=== PATIENT | male | born 1980 | race Caucasian/White ===

== ENCOUNTER 2019-12-03 23:56 | Emergency (ER) | payer OTHER, SELFPAY ==
[2019-12-04 00:09] VITALS: BP 117/76; PULSE 57; RESP 16; TEMP 36.7; O2SAT 100; BMI 20.5
[2019-12-04] MEDS: predniSONE 20 MG TABLET 60 MG PO (00:39)
--- NOTE | 2019-12-04 00:40 | ED_ITS ---
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 Initially he thought his face was red perhaps sunburned or wind burned. His lips were dry a bit more full and then began to itch a particularly the left angle of the lips. He thought he may be developing a cold sore and started his valacyclovir. Over the last 12-18 hours he notes increasing swelling around the eyes, fullness to the lips with increasing dryness to the lips because of the fullness. He specifically notes no tongue or posterior pharyngeal swelling or irritation. No wheezing and no rash anywhere else on his body. Related Data Previous Rx's Medication Instructions Recorded methylprednisolone [Medrol (Noah)] See Rx Instructions .ROUTE 12/04/19 .COMPLEX #21 each Allergies Allergy/AdvReac Type Severity Reaction Status Date / Time cephalexin [From Keflex] Allergy Verified 12/04/19 00:09 Review of Systems Review of Systems Narrative: Pertinent positive and negative findings as per HPI Remainder of review of systems is otherwise unremarkable for Constitutional: Fevers, chills, weakness ENT: No sore throat, neck pain, ear pain CV: Chest pain, palpitations, dyspnea on exertion Respiratory: Cough, wheeze, dyspnea GI: Nausea, vomiting, diarrhea, change in bowel habits, black or bloody stools : Dysuria, hematuria, flank pain MS: Muscle weakness, numbness, joint swelling or warmth Neuro: Syncope, dizziness, tingling Allergy: Seasonal rhinorrhea, itchy eyes Patient History Medical History Diabetes (Acute) Necrotizing pancreatitis (Acute) Surgical History History of cholecystectomy (Acute) Social History Smoking Status: Never smoker Smoking Status: Never smoker alcohol intake frequency: 0-2 drinks per day Substance Use Type: does not use Exam Narrative Exam Narrative: General: Facial erythema and edema but Able to give a complete and coherent history. Well-nourished well-developed HEENT: Moist mucous membranes, rash over the mid face extending up the nasal br idge including eyelids and down to the chin. Moderately defined border around the facial rash. Erythematous and blanching. Very dry lips edema associated with the rash. Oropharynx is entirely unremarkable, he has no cervical adenopathy. Neck: No JVD, supple Respiratory: Lungs are clear to auscultation, no wheezing no rales no rhonchi. Full and symmetrical air movement Cardiac: Regular rate and rhythm no murmurs no bruits Abdomen: Soft nontender good bowel tones, no flank pain Skin: Warm and dry, no rashes beyond that on his face Neurologic: Grossly neurologically intact with no obvious asymmetries or abnormalities Extremities: No trauma, well perfused Psych: Cooperative, appropriate insight and affect Initial Vital Signs Initial Vital Signs: Vital Signs Temperature 98.0 F 12/04/19 00:09 Pulse Rate 57 L 12/04/19 00:09 Respiratory Rate 16 12/04/19 00:09 Blood Pressure 117/76 12/04/19 00:09 Pulse Oximetry 100 12/04/19 00:09 Course Orders Ordered: Discontinued Medications Loratadine (Claritin) 10 mg PO NOW ONE Stop: 12/04/19 00:37 Last Admin: 12/04/19 00:45 Dose: 10 mg Documented by: Prednisone (Deltasone) 60 mg PO NOW ONE Stop: 12/04/19 00:37 Last Admin: 12/04/19 00:39 Dose: 60 mg Documented by: Vital Signs Vital signs: Vital Signs - 8 hr 12/04/19 00:09 12/04/19 00:51 Temperature 98.0 F Pulse Rate 57 L 50 L Respiratory Rate 16 15 Blood Pressure 117/76 117/76 Pulse Oximetry 100 100 MDM - Allergic Reaction MDM Narrative Medical decision making narrative: 39-year-old gentleman with a rash developing over his face worsening in the last 3 days certainly looks allergic with the color as well as the hive-like appearance. The significantly localized area is interesting. Explanation is an acute allergic reaction and I treated it is such initially. He is given a dose of prednisone with Medrol Dosepak and instructions to continue Ami for 7 additional days. I did share with him that the diagnosis is incorrect if his symptoms are not improving. Dispose severe seborrheic dermatitis could certainly be within the differential however it does not extend down his neck or to his chest. It has more swelling/hives like presentation and includes more of the face than I would expect with something from an autoimmune disease such is the malar rash associated with lupus. At this time, it certainly is not life-threatening, it is not an anaphylactic reaction and he is safe for home discharge. Discharge Plan Departure Patient Disposition: Home Clinical Impression: Allergic reaction Qualifiers: Encounter type: initial encounter Qualified Code(s): T78.40XA - Allergy, unspecified, initial encounter Discharge Date/Time: 12/04/19 00:51 Instructions: DI for Anaphylaxis Prescriptions: New methylprednisolone [Medrol (Noha)] 4 mg tablets,dose pack See Rx Instructions .ROUTE .COMPLEX Qty: 21 RF: 0
[2019-12-04] MEDS: LORATADINE 10 MG TABLET PO (00:45)
[2019-12-04 00:51] VITALS: BP 117/76; PULSE 50; RESP 15; O2SAT 100
== END 2019-12-04 00:51 | disposition home or self-care (01) ==
PROVIDERS: Emergency Provider Emergency Medicine
DX: T78.40XA Allergy, unspecified, initial encounter (principal)
CPT/HCPCS: 99282; 99283